=== PATIENT | female | born 1980 | race American Indian/Alaskan Native ===

== ENCOUNTER 2017-03-05 22:02 | Emergency (ER) | payer MEDICAID, OTHER ==
[~2017-03-05 22:02] MED LIST: TYLENOL ONE
[2017-03-05 22:11] VITALS: BP 138/82
[2017-03-05] MEDS ORDERED: TYLENOL PO ONE (22:12)
--- NOTE | 2017-03-10 19:20 | ED Elopement Review ---
ED Pt Elopement review - Call Back decision Pt Call Back Decision: Pt to F/U with PMD
== END 2017-03-06 05:53 | disposition left against medical advice (07) ==
LOC: ED 22:02
DX: R50.9 Fever, unspecified (principal); Z53.21 Procedure and treatment not carried out due to patient leaving prior to being seen by health care provider
CPT/HCPCS: 87400

== ENCOUNTER 2017-03-07 21:34 | Emergency (ER) | payer MEDICAID ==
[2017-03-07] MEDS ORDERED: PROVENTIL IH ONE ×2 (22:14→22:48)
[2017-03-07] MEDS ORDERED: ATROVENT IH ONE ×2 (22:14→22:49)
[2017-03-07 23:24] LABS: Basophils % (Auto) 0.3 % (0.0-1.8); Eosinophils % (Auto) 0.3 % (0.0-4.3); Hematocrit 32.7 % (30.3-42.9); Hemoglobin 10.1 gm/dl (10.1-14.3); Mean Corpuscular HGB Conc 31 % (30-34); Mean Corpuscular Volume 76 fl (79-97); Platelet Count 162 K/mm3 (140-440); Red Blood Count 4.27 M/mm3 (3.65-5.03); White Blood Count 9.4 K/mm3 (4.5-11.0)
[2017-03-07 23:33] LABS: Mean Corpuscular Hemoglobin 24 pg (28-32); Red Cell Distribution Width 23.7 % (13.2-15.2)
[2017-03-07 23:34] LABS: INR 1.06 (0.87-1.13)
[2017-03-07 23:35] LABS: Partial Thromboplastin Time 30.7 Sec. (24.2-36.6)
[2017-03-07 23:39] LABS: Alanine Aminotransferase 12 units/L (7-56); Albumin 4.2 g/dL (3.9-5); Albumin/Globulin Ratio 1.2 %; Alkaline Phosphatase 60 units/L (35-129); Anion Gap 21 mmol/L; BUN/Creatinine Ratio 12.85; Bilirubin,Total 0.4 mg/dL (0.1-1.2); Blood Urea Nitrogen 9 mg/dL (7-17); Calcium 9.5 mg/dL (8.4-10.2); Carbon Dioxide 21 mmol/L (22-30); Chloride 99.3 mmol/L (98-107); Glucose 92 mg/dL (65-100); Lipase 23 units/L (13-60); Potassium 3.2 mmol/L (3.6-5.0); Sodium 138 mmol/L (137-145); Total Protein 7.7 g/dL (6.3-8.2)
--- NOTE | 2017-03-08 00:28 | Cat Scan Report ---
FINAL REPORT EXAM: CT ABDOMEN PELVIS WO CON HISTORY: pain, N V, Diarrhea, rectal bleed TECHNIQUE: Spiral CT scanning of the abdomen and pelvis. No oral or IV contrast administered. Multiplanar reformations. PRIORS: 24 May 2015. FINDINGS: Abdomen: Examination limited due to lack of contrast administration. Visualized lung bases grossly unremarkable. No radiopaque gallstones. Liver grossly unremarkable. Spleen grossly unremarkable. Pancreas grossly unremarkable. Kidneys grossly unremarkable. Adrenal glands grossly unremarkable. Pelvis: Multiple loops of prominent small bowel in the mid-lower abdomen and pelvis containing gas and fluid without discrete transition point. Majority of colon incompletely or nondistended without evidence of mechanical obstruction. Appendix within normal limits. Very small amount of free fluid in the pelvis, with some mesenteric fat stranding and possible edema may be reactive or postinflammatory. No loculated fluid collection. Abdominal aorta non-aneurysmal. IMPRESSION: 1. Nonspecific bowel gas pattern suggesting adynamic ileus, which may be associated with nonspecific postinflammatory change, including enteritis. Correlate clinically.
[2017-03-08 01:16] LABS: Bacteria,Urine 2+ /HPF (Negative); Bilirubin,Urine NEG (Negative); Blood,Urine MOD (Negative); Ketones,Urine 20 mg/dL (Negative); Leukocyte Esterase,Urine MOD (Negative); Mucus,Urine 3+ /HPF; Nitrite,Urine POS (Negative)
[2017-03-08 02:28] VITALS: BP 100/70
[2017-03-08] MEDS ORDERED: MORPHINE IV ONE (02:54)
[2017-03-08] MEDS ORDERED: NACL 0.9% 1000 ML 1,000 ML IV ONE (02:54)
[2017-03-08] MEDS ORDERED: ZOFRAN IV ONE (02:54)
[2017-03-08] MEDS ORDERED: ROCEPHIN/NS 1 GM/50 ML 1 GM/50 ML BAG IV ONE (02:55)
[2017-03-08] MEDS ORDERED: K-DUR PO ONE (03:20)
--- NOTE | 2017-03-08 03:42 | Emergency Department Report ---
ED Abdominal Pain HPI - General Chief Complaint: Abdominal Pain Stated Complaint: LEFT SIDE AND BACK PAIN Time Seen by Provider: 03/08/17 02:33 Source: patient Mode of arrival: Ambulatory Limitations: No Limitations - History of Present Illness Initial Comments: 36-year-old female with past medical history of 5 and tubal ligation presents to the hospital with complaints of abdominal pain 2 months. Pain over the left lower quadrant and radiates to the back. Symptoms are constant but increases with movement with a sharp component. Pain rated moderate to severe in intensity. Patient having intermittent nausea, vomiting and diarrhea for the past 2 months reported dark stool today. Patient also complaining of left lower rib pain 2 months and cough productive of yellow sputum 1 week. Patient states she was short of breath upon arrival but symptoms improved after receiving a nebulized treatment prior to my evaluation. No reports of fever at this time. Patient has had a strong urine smell for the past week. Patient presented here on March 05 however, left prior to laboratory draw or M.D. evaluation. She had a fever of 101.3 at that time. Severity scale (0 -10): 10 - Related Data Previous Rx's Medication Instructions Recorded Last Taken Type HYDROcodone/APAP 5-325 [[place] 1 each PO Q6HR PRN #12 tablet 12/24/13 Unknown Rx 5/325 mg] Sulfamethoxazole/Trimethoprim 1 each PO BID #14 tablet 12/24/13 Unknown Rx [Bactrim Ds] Promethazine [Phenergan] 25 mg PO Q6H PRN #12 tablet 05/25/15 Unknown Rx Ciprofloxacin HCl [Ciprofloxacin 500 mg PO Q12H #14 tab 09/10/15 Unknown Rx TAB] Hyoscyamine Subl [Levsin Sl 0.125 0.125 mg SL Q6HR PRN #15 tab 09/10/15 Unknown Rx TAB] Promethazine [Phenergan TAB] 25 mg PO Q6H PRN #12 tablet 09/10/15 Unknown Rx traMADol [Ultram] 50 mg PO Q6HR PRN #15 tablet 09/10/15 Unknown Rx Ibuprofen [Motrin] 800 mg PO Q8HR PRN #14 tablet 09/07/16 Unknown Rx Cyclobenzaprine [Flexeril] 10 mg PO BID PRN #15 tablet 10/16/16 Unknown Rx ALBUTEROL Inhaler [ProAir HFA 2 puff IH QID PRN #1 inhalation 03/08/17 Unknown Rx Inhaler] HYDROcodone/APAP 10-325 [[place] 1 each PO Q4-6H PRN #20 tablet 03/08/17 Unknown Rx 10-325 mg TAB] Naproxen [Naprosyn TAB] 500 mg PO BID PRN #25 tablet 03/08/17 Unknown Rx Nitrofurantoin [place]/M-Cryst 100 mg PO Q12HR #14 capsule 03/08/17 Unknown Rx [Macrobid CAP] Ondansetron [Zofran TAB] 4 mg PO Q8HR PRN #20 tablet 03/08/17 Unknown Rx Potassium Chloride [Klor-Con] 20 meq PO BID #6 packet 03/08/17 Unknown Rx Allergies Allergy/AdvReac Type Severity Reaction Status Date / Time oxycodone HCl [From Percocet] AdvReac Itching Verified 09/06/16 18:17 ED Review of Systems ROS: Stated complaint: LEFT SIDE AND BACK PAIN Other details as noted in HPI Comment: All other systems reviewed and negative Other: Constitutional: As per HPI Eyes: No eye pain visual changes or discharge ENT: No ear pain or throat pain Neck: Denies pain Respiratory: As per HPI Cardiovascular: Denies palpitations, syncope GI: As per HPI : Denies dysuria. However, patient did experience one episode of urinating on herself this week Musculoskeletal: As per HPI Skin: Denies rash, lesions, erythema Neurologic: Denies headache, numbness, weakness Psychiatric: Denies suicidal ideation, hallucinations ED Past Medical Hx - Past Medical History Previous Medical History?: Yes Additional medical history: PREECLAMPSIA - Surgical History Past Surgical History?: Yes Additional Surgical History: CSection x5. tubal ligation - Social History Smoking Status: Former Smoker Substance Use Type: Alcohol - Medications Home Medications: Home Medications Medication Instructions Recorded Confirmed Last Taken Type HYDROcodone/APAP 5-325 [[place] 1 each PO Q6HR PRN #12 tablet 12/24/13 Unknown Rx 5/325 mg] Sulfamethoxazole/Trimethoprim 1 each PO BID #14 tablet 12/24/13 Unknown Rx [Bactrim Ds] Promethazine [Phenergan] 25 mg PO Q6H PRN #12 tablet 05/25/15 Unknown Rx Ciprofloxacin HCl [Ciprofloxacin 500 mg PO Q12H #14 tab 09/10/15 Unknown Rx TAB] Hyoscyamine Subl [Levsin Sl 0.125 0.125 mg SL Q6HR PRN #15 tab 09/10/15 Unknown Rx TAB] Promethazine [Phenergan TAB] 25 mg PO Q6H PRN #12 tablet 09/10/15 Unknown Rx traMADol [Ultram] 50 mg PO Q6HR PRN #15 tablet 09/10/15 Unknown Rx Ibuprofen [Motrin] 800 mg PO Q8HR PRN #14 tablet 09/07/16 Unknown Rx Cyclobenzaprine [Flexeril] 10 mg PO BID PRN #15 tablet 10/16/16 Unknown Rx ALBUTEROL Inhaler [ProAir HFA 2 puff IH QID PRN #1 inhalation 03/08/17 Unknown Rx Inhaler] HYDROcodone/APAP 10-325 [[place] 1 each PO Q4-6H PRN #20 tablet 03/08/17 Unknown Rx 10-325 mg TAB] Naproxen [Naprosyn TAB] 500 mg PO BID PRN #25 tablet 03/08/17 Unknown Rx Nitrofurantoin [place]/M-Cryst 100 mg PO Q12HR #14 capsule 03/08/17 Unknown Rx [Macrobid CAP] Ondansetron [Zofran TAB] 4 mg PO Q8HR PRN #20 tablet 03/08/17 Unknown Rx Potassium Chloride [Klor-Con] 20 meq PO BID #6 packet 03/08/17 Unknown Rx ED Physical Exam - General Limitations: No Limitations - Other Other exam information: General: No limitations, patient is alert in no acute distress Head exam: Atraumatic, normocephalic Eyes exam: Normal appearance, ENT: Moist mucous membrane, normal oropharynx Neck exam: Normal inspection, full range of motion Respiratory exam: Clear to auscultation bilateral, no wheezes, rales, crackles. Reproducible left lower ribs/chest wall tenderness Cardiovascular: Normal rate and rhythm Abdomen: Soft, nondistended, P wick, left lower quadrant and left flank tenderness. No rebound or guarding Extremity: Full range of motion normal inspection no deformity Back: Normal Inspection, full range of motion, no tenderness Neurologic: Alert, oriented x3, cranial nerves intact, no motor or sensory deficit Psychiatric: normal affect, normal mood Skin: Warm, dry, intact ED Course Vital Signs 03/07/17 03/08/17 03/08/17 22:02 02:27 02:28 Temperature 98.6 F Pulse Rate 93 H 103 H Respiratory 26 H 20 20 Rate Blood Pressure 132/89 100/70 [Right] O2 Sat by Pulse 100 100 100 Oximetry 03/08/17 03:30 Temperature Pulse Rate Respiratory 18 Rate Blood Pressure [Right] O2 Sat by Pulse Oximetry - Reevaluation(s) Reevaluation #1: 03/08/17 03:44 Patient treated with morphine, Zofran, Toradol, normal saline, PO potassium and Rocephin IV 03/08/17 05:02 ED Medical Decision Making - Lab Data Result diagrams: 03/07/17 22:47 03/07/17 22:47 Lab Results 03/07/17 03/07/17 03/07/17 Range/Units 22:47 22:47 22:47 WBC 9.4 (4.5-11.0) K/mm3 RBC 4.27 (3.65-5.03) M/mm3 Hgb 10.1 (10.1-14.3) gm/dl Hct 32.7 (30.3-42.9) % MCV 76 L (79-97) fl MCH 24 L (28-32) pg MCHC 31 (30-34) % RDW 23.7 H (13.2-15.2) % Plt Count 162 (140-440) K/mm3 Lymph % (Auto) 21.8 (13.4-35.0) % [place] % (Auto) 9.5 H (0.0-7.3) % Eos % (Auto) 0.3 (0.0-4.3) % Baso % (Auto) 0.3 (0.0-1.8) % Lymph # 2.1 (1.2-5.4) K/mm3 [place] # 0.9 H (0.0-0.8) K/mm3 Eos # 0.0 (0.0-0.4) K/mm3 Baso # 0.0 (0.0-0.1) K/mm3 Seg Neutrophils % 68.1 (40.0-70.0) % Seg Neutrophils # 6.4 (1.8-7.7) K/mm3 PT 13.7 (12.2-14.9) Sec. INR 1.06 (0.87-1.13) APTT 30.7 (24.2-36.6) Sec. VBG pH (7.320-7.420) Sodium 138 (137-145) mmol/L Potassium 3.2 L (3.6-5.0) mmol/L Chloride 99.3 (98-107) mmol/L Carbon Dioxide 21 L (22-30) mmol/L Anion Gap 21 mmol/L BUN 9 (7-17) mg/dL Creatinine 0.7 (0.7-1.2) mg/dL Estimated GFR > 60 ml/min BUN/Creatinine Ratio 12.85 % Glucose 92 (65-100) mg/dL Calcium 9.5 (8.4-10.2) mg/dL Magnesium (1.7-2.3) mg/dL Total Bilirubin 0.4 (0.1-1.2) mg/dL AST 16 (5-40) units/L ALT 12 (7-56) units/L Alkaline Phosphatase 60 (35-129) units/L Troponin T < 0.010 (0.00-0.029) ng/mL Total Protein 7.7 (6.3-8.2) g/dL Albumin 4.2 (3.9-5) g/dL Albumin/Globulin Ratio 1.2 % Lipase 23 (13-60) units/L HCG, Qual (Negative) Urine Color (Yellow) Urine Turbidity (Clear) Urine pH (5.0-7.0) Ur Specific [place] (1.003-1.030) Urine Protein (Negative) mg/dL Urine Glucose (UA) (Negative) mg/dL Urine Ketones (Negative) mg/dL Urine Blood (Negative) Urine Nitrite (Negative) Urine Bilirubin (Negative) Urine Urobilinogen (<2.0) mg/dL Ur Leukocyte Esterase (Negative) Urine WBC (Auto) (0.0-6.0) /HPF Urine RBC (Auto) (0.0-6.0) /HPF U Epithel Cells (Auto) (0-13.0) /HPF Urine Bacteria (Auto) (Negative) /HPF Urine WBC Clumps /HPF Amorphous Crystals Hyaline Casts /LPF Urine Mucus /HPF 03/07/17 03/07/17 03/08/17 Range/Units 22:47 22:47 00:05 WBC (4.5-11.0) K/mm3 RBC (3.65-5.03) M/mm3 Hgb (10.1-14.3) gm/dl Hct (30.3-42.9) % MCV (79-97) fl MCH (28-32) pg MCHC (30-34) % RDW (13.2-15.2) % Plt Count (140-440) K/mm3 Lymph % (Auto) (13.4-35.0) % [place] % (Auto) (0.0-7.3) % Eos % (Auto) (0.0-4.3) % Baso % (Auto) (0.0-1.8) % Lymph # (1.2-5.4) K/mm3 [place] # (0.0-0.8) K/mm3 Eos # (0.0-0.4) K/mm3 Baso # (0.0-0.1) K/mm3 Seg Neutrophils % (40.0-70.0) % Seg Neutrophils # (1.8-7.7) K/mm3 PT (12.2-14.9) Sec. INR (0.87-1.13) APTT (24.2-36.6) Sec. VBG pH 7.425 H (7.320-7.420) Sodium (137-145) mmol/L Potassium (3.6-5.0) mmol/L Chloride (98-107) mmol/L Carbon Dioxide (22-30) mmol/L Anion Gap mmol/L BUN (7-17) mg/dL Creatinine (0.7-1.2) mg/dL Estimated GFR ml/min BUN/Creatinine Ratio % Glucose (65-100) mg/dL Calcium (8.4-10.2) mg/dL Magnesium (1.7-2.3) mg/dL Total Bilirubin (0.1-1.2) mg/dL AST (5-40) units/L ALT (7-56) units/L Alkaline Phosphatase (35-129) units/L Troponin T (0.00-0.029) ng/mL Total Protein (6.3-8.2) g/dL Albumin (3.9-5) g/dL Albumin/Globulin Ratio % Lipase (13-60) units/L HCG, Qual Negative (Negative) Urine Color Yellow (Yellow) Urine Turbidity Cloudy (Clear) Urine pH 6.0 (5.0-7.0) Ur Specific [place] 1.018 (1.003-1.030) Urine Protein 100 mg/dl (Negative) mg/dL Urine Glucose (UA) Neg (Negative) mg/dL Urine Ketones 20 (Negative) mg/dL Urine Blood Mod (Negative) Urine Nitrite Pos (Negative) Urine Bilirubin Neg (Negative) Urine Urobilinogen 2.0 (<2.0) mg/dL Ur Leukocyte Esterase Mod (Negative) Urine WBC (Auto) 122.0 H (0.0-6.0) /HPF Urine RBC (Auto) 10.0 (0.0-6.0) /HPF U Epithel Cells (Auto) 4.0 (0-13.0) /HPF Urine Bacteria (Auto) 2+ (Negative) /HPF Urine WBC Clumps 1+ /HPF Amorphous Crystals 3+ Hyaline Casts 2 /LPF Urine Mucus 3+ /HPF 03/08/17 03/08/17 Range/Units 01:06 01:06 WBC (4.5-11.0) K/mm3 RBC (3.65-5.03) M/mm3 Hgb (10.1-14.3) gm/dl Hct (30.3-42.9) % MCV (79-97) fl MCH (28-32) pg MCHC (30-34) % RDW (13.2-15.2) % Plt Count (140-440) K/mm3 Lymph % (Auto) (13.4-35.0) % [place] % (Auto) (0.0-7.3) % Eos % (Auto) (0.0-4.3) % Baso % (Auto) (0.0-1.8) % Lymph # (1.2-5.4) K/mm3 [place] # (0.0-0.8) K/mm3 Eos # (0.0-0.4) K/mm3 Baso # (0.0-0.1) K/mm3 Seg Neutrophils % (40.0-70.0) % Seg Neutrophils # (1.8-7.7) K/mm3 PT (12.2-14.9) Sec. INR (0.87-1.13) APTT (24.2-36.6) Sec. VBG pH (7.320-7.420) Sodium (137-145) mmol/L Potassium (3.6-5.0) mmol/L Chloride (98-107) mmol/L Carbon Dioxide (22-30) mmol/L Anion Gap mmol/L BUN (7-17) mg/dL Creatinine (0.7-1.2) mg/dL Estimated GFR ml/min BUN/Creatinine Ratio % Glucose (65-100) mg/dL Calcium (8.4-10.2) mg/dL Magnesium 1.7 (1.7-2.3) mg/dL Total Bilirubin (0.1-1.2) mg/dL AST (5-40) units/L ALT (7-56) units/L Alkaline Phosphatase (35-129) units/L Troponin T < 0.010 (0.00-0.029) ng/mL Total Protein (6.3-8.2) g/dL Albumin (3.9-5) g/dL Albumin/Globulin Ratio % Lipase (13-60) units/L HCG, Qual (Negative) Urine Color (Yellow) Urine Turbidity (Clear) Urine pH (5.0-7.0) Ur Specific [place] (1.003-1.030) Urine Protein (Negative) mg/dL Urine Glucose (UA) (Negative) mg/dL Urine Ketones (Negative) mg/dL Urine Blood (Negative) Urine Nitrite (Negative) Urine Bilirubin (Negative) Urine Urobilinogen (<2.0) mg/dL Ur Leukocyte Esterase (Negative) Urine WBC (Auto) (0.0-6.0) /HPF Urine RBC (Auto) (0.0-6.0) /HPF U Epithel Cells (Auto) (0-13.0) /HPF Urine Bacteria (Auto) (Negative) /HPF Urine WBC Clumps /HPF Amorphous Crystals Hyaline Casts /LPF Urine Mucus /HPF - EKG Data -: EKG Interpreted by Me (and his rhythm rate [address] elevation ME or T-wave inversion) - EKG Data When compared to previous EKG there are: previous EKG unavailable - Radiology Data Radiology results: report reviewed CT abdomen and pelvis noncontrast: Nonspecific bowel gas pattern suggestive of adynamic ileus which may be associated with nonspecific postinflammatory changes including enteritis correlate clinically Chest x-ray: No acute findings: Read by me - Medical Decision Making Patient has a UTI and will be treated with Macrobid as an outpatient. Patient also had wheezing prior to my evaluation that improved withalbuterol and Atrovent treatment. Patient will be provided an inhaler for acute bronchitis. - Differential Diagnosis pneumonia, viral syndrome, UTI, diverticulitis, bronchitis Critical Care Time: No Critical care attestation.: If time is entered above; I have spent that time in minutes in the direct care of this critically ill patient, excluding procedure time. ED Disposition Clinical Impression: UTI (urinary tract infection), Abdominal pain, Hypokalemia, Acute bronchitis Disposition: DISCHARGED TO HOME OR SELFCARE Is pt being admited?: No Does the pt Need Aspirin: No Condition: Stable Instructions: Abdominal Pain (ED), Urinary Tract Infection in Women (ED), Acute Bronchitis (ED) Additional Instructions: Take the medication as prescribed. Follow-up with the primary care doctor provided with the doctor of your choice. Return if symptoms worsen Prescriptions: ALBUTEROL Inhaler [ProAir HFA Inhaler] 2 puff IH QID PRN #1 inhalation PRN Reason: Shortness Of Breath HYDROcodone/APAP 10-325 [[place] 10-325 mg TAB] 1 each PO Q4-6H PRN #20 tablet PRN Reason: Pain Naproxen [Naprosyn TAB] 500 mg PO BID PRN #25 tablet PRN Reason: Pain Nitrofurantoin [place]/M-Cryst [Macrobid CAP] 100 mg PO Q12HR #14 capsule Ondansetron [Zofran TAB] 4 mg PO Q8HR PRN #20 tablet PRN Reason: Nausea Potassium Chloride [Klor-Con] 20 meq PO BID #6 packet Referrals: PRIMARY CAREMD [Primary Care Provider] - 3-5 Days MUNA REDDY MD [Staff Physician] - 3-5 Days Time of Disposition: 05:03
--- NOTE | 2017-03-08 09:38 | XRay Report ---
Chest 2 views: History: Cough, Findings: Normal cardiomediastinal silhouette. Trachea is midline. No consolidation, pneumothorax or pleural effusion. Impression: No acute cardiopulmonary findings.
== END 2017-03-08 05:27 | disposition home or self-care (01) ==
LOC: ED 21:34
DX: N39.0 Urinary tract infection, site not specified (principal); E87.6 Hypokalemia; J20.9 Acute bronchitis, unspecified; R10.32 Left lower quadrant pain; Z87.891 Personal history of nicotine dependence; Z88.8 Allergy status to other drugs, medicaments and biological substances
CPT/HCPCS: 36415; 71020; 74176; 80053; 81001; 82805; 83690; 83735; 84484; 84703; 85025; 85610; 85730; 93005; 93010; 96365; 96375; 99285; J0696; J2270; J2405; J7030